=== PATIENT | female | born 1945 | race Caucasian/White ===

== ENCOUNTER → 2019-01-22 | Outpatient (REF) | payer MEDICARE ==
[~2019-01-22] MED LIST: ATORVASTATIN CA20 MG PO; AUGMENTIN875TAB OR; CALCIUM600 MG PO; CELEBREX200 MG PO; DITROPAN XL5 MG PO; ESTRADIOL0.025 MG TD; LISINOPRIL10 MG PO; LISINOPRIL5 MG PO; MAGNESIUM-OX400 MG PO; METFORMIN500 MG PO; PROZAC10 MG PO; SYNTHROID137 MCG PO
== END | disposition home or self-care (01) ==
LOC: NUCMED 09:45 → STRESS 09:46
PROVIDERS: ATTEND Internal Medicine
DX: I20.9 Angina pectoris, unspecified (principal)
CPT/HCPCS: A9502; J2785

== ENCOUNTER 2021-11-18 14:17 | Emergency (ER) | payer MEDICARE ==
[~2021-11-18] VITALS: Ht 167.6 cm; Wt 86.4 kg
[2021-11-18] MEDS ORDERED: LEVOTHYROXIN125 MCG PO (14:39)
[2021-11-18] MEDS ORDERED: ATORVASTATIN CA20 MG PO (14:39)
[2021-11-18] MEDS ORDERED: ESTRADIOL PO (14:41)
[2021-11-18 15:12] LABS: HEMATOCRIT 41.7 % (37.0-47.0); HEMOGLOBIN 13.7 g/dl (12.0-16.0); IMMATURE GRANULOCYTES 0.6 % (0.0-5.0); MEAN CELL VOLUME 92.1 fL CALC (80.0-100.0); MEAN CORPUSCULAR HGB 30.2 pG CALC (26.0-32.0); MEAN CORPUSCULAR HGB CONC 32.9 g/dL CAL (32.0-36.0); NEUT# 5.38 thou/uL (2.00-7.15); RED BLOOD COUNT 4.53 mill/uL (4.20-5.60); RED CELL DISTRI WIDTH 13.3 % (11.5-15.5)
[2021-11-18 15:17] LABS: ALBUMIN 4.5 g/dL (3.2-5.0); ALKALINE PHOSPHATASE 76 u/l (38-126); ANION GAP 13 (6-22 (CALC)); BUN 21 mg/dL (8-23); BUN/CREATININE RATIO 22 (12-20 (CALC)); CARBON DIOXIDE 24 mmol/l (22-30); CHLORIDE 102 mmol/l (95-108); CREATININE 0.9 mg/dL (0.5-1.0); GFR > 60 ML/MIN (>=60 (CALC)); GFR FOR AFR.AMER. > 60 ML/MIN (>=60 (CALC)); LIPASE 164 u/l (23-300); MAGNESIUM 1.8 mg/dL (1.6-2.3); POTASSIUM 4.8 mmol/l (3.5-5.1); SGOT/AST 32 u/l (9-36); SODIUM 135 mmol/l (137-146); TOTAL PROTEIN 7.8 g/dL (6.3-8.2)
[2021-11-18 15:18] LABS: BILIRUBIN, TOTAL 0.7 mg/dL (0.0-1.4)
[2021-11-18 15:59] LABS: ACT PARTIAL THROMBO TIME 19.8 SECONDS (20.0-32.5); PROTHROMBIN TIME 10.9 SECONDS (9.0-12.5)
[2021-11-18 20:34] VITALS: BP 152/67
== END 2021-11-18 20:54 | disposition short-term general hospital (02) ==
LOC: ED 14:17
DX: R07.9 Chest pain, unspecified (principal); I44.7 Left bundle-branch block, unspecified; I10 Essential (primary) hypertension; E11.9 Type 2 diabetes mellitus without complications; E78.5 Hyperlipidemia, unspecified; Z79.84 Long term (current) use of oral hypoglycemic drugs